=== PATIENT | male | born 1980 | race Two or more races ===

== ENCOUNTER 2016-12-31 11:06 | Emergency (ER) | payer OTHER ==
[~2016-12-31] VITALS: Ht 180.3 cm; Wt 98.2 kg
[2016-12-31 13:44] VITALS: BP 150/105
== END 2016-12-31 13:44 | disposition home or self-care (01) ==
LOC: ED 11:06
DX: J45.901 Unspecified asthma with (acute) exacerbation (principal); F45.8 Other somatoform disorders
CPT/HCPCS: 36415; 36600; J2930; J7613; Q0092